=== PATIENT | female | born 1960 | race Caucasian/White ===

== ENCOUNTER → 2017-10-23 10:49 | Outpatient (CLI) | payer SELFPAY ==
--- NOTE | 2017-10-23 10:51 | RAD_ITS ---
STUDY: X-RAY - RIGHT SHOULDER REASON FOR EXAM: Female, 57 years old. Shoulder pain and stiffness. TECHNIQUE: 4 view(s) of the shoulder. COMPARISON: None. FINDINGS: Normal glenohumeral articulation. Normal acromioclavicular joint. Normal acromion. Normal humeral head and visualized proximal humerus. There is periarticular soft tissue calcification consistent with a calcific tendinitis. Normal visualized pulmonary apex. RAD/Shoulder min 2 Views IMPRESSION: Calcific tendinitis. Electronically Signed: Maulik Garcia MD at 15:54 EDT Tel [phone], Service support ,
== END ==
PROVIDERS: Family Provider Internal Medicine; PCP Internal Medicine; Visit Provider Internal Medicine
DX: M75.31 Calcific tendinitis of right shoulder (principal)
CPT/HCPCS: 73030

== ENCOUNTER → 2018-07-30 09:45 | Outpatient (CLI) | payer OTHER, SELFPAY ==
--- NOTE | 2018-07-30 09:52 | RAD_ITS ---
STUDY: X-RAY CHEST REASON FOR EXAM: Female, 58 years old. Cough. TECHNIQUE: PA and lateral chest. COMPARISON: July 09, 2014. FINDINGS: The lungs are clear and expanded. There is no demonstrated pleural abnormality. Lungs are hyperinflated. Normal size heart. Normal mediastinum and jose. Normal visualized pulmonary arteries. Normal visualized aortic arch and descending thoracic aorta. Normal visualized thoracic spine. Normal visualized ribs, clavicles, and shoulders. There is no demonstrated abnormality of the visualized soft tissue structures of the upper abdomen. RAD/Chest PA and Lateral IMPRESSION: Stable chest, no acute cardiopulmonary disease. Hyperinflation. Electronically Signed: Mau Watson MD at 4:40 EST , Service support ,
== END ==
PROVIDERS: Family Provider Internal Medicine; PCP Internal Medicine; Referring Provider Nurse Practitioner Gerontology; Visit Provider Nurse Practitioner Gerontology
DX: R05 Cough (principal)
CPT/HCPCS: 71046

== ENCOUNTER → 2019-12-12 12:48 | Outpatient (CLI) | payer OTHER, SELFPAY ==
--- NOTE | 2019-12-12 12:55 | ECHOD_ITS ---
Reason For Study: RBBB Procedure This was a 2D Doppler, Color Flow transthoracic echocardiogram. The exam was of adequate technical quality. Exam performed in department. Left Ventricle Normal LV size. Left ventricular systolic function is normal. The estimated ejection fraction is 55 %. No evidence for diastolic dysfunction. No regional wall motion abnormalities noted. Right Ventricle Normal RV size. Normal systolic function. Atria Normal left atrium. Normal right atrium. Aneurysmal atrial septum. No doppler evidence for ASD. Mitral Valve There is no mitral annular calcification. Mild focal mitral valve calcification of the anterior leaflet. Mild (1+) mitral valve insufficiency. Tricuspid Valve Normal tricuspid valve. Trivial tricuspid valve insufficiency. Right ventricular systolic pressure estimated to be 20 mmHg. Aortic Valve Trisinus/trileaflet aortic valve. Mild diffuse aortic valve thickening. Mild focal aortic valve calcification. Pulmonic Valve The pulmonic valve is not well visualized. Trivial pulmonic valve insufficiency. Great Vessels Normal sized aortic root. Pericardium/Pleural No pericardial effusion. MMode/2D Measurements & Calculations LVIDd: 4.5 cm IVSd: 0.80 cm Ao root diam: 2.6 cm LVIDs: 3.1 cm LVPWd: 0.70 cm RVDd: 4.1 cm FS: 30.9 % LAV(MOD-bp): 38.3 ml LVAd ap4: 25.7 cm2 SV(MOD-sp4): 42.4 ml LAV(MOD-bp) Indexed: 21.8 ml/m2 EDV(MOD-sp4): 76.2 ml LAV(MOD-sp2): 26.1 ml EDV(sp4-el): 77.3 ml LAV(MOD-sp4): 35.2 ml LVAs ap4: 15.3 cm2 ESV(MOD-sp4): 33.8 ml ESV(sp4-el): 33.2 ml EF(MOD-sp4): 55.6 % EF(sp4-el): 57.1 % SV(sp4-el): 44.2 ml LA A4 area: 15.9 cm2 LA dimension(2D): 3.1 cm RA A4 area: 14.0 cm2 Doppler Measurements & Calculations MV E max florin: 62.3 cm/sec Lat Peak E' Florin: 11.2 cm/sec Med Peak E' Florin: 8.8 cm/sec MV A max florin: 55.0 cm/sec E/E' lat: 5.6 E/E' med: 7.1 MV E/A: 1.1 Ao V2 max: 117.8 cm/sec LV V1 max: 87.9 cm/sec PA V2 max: 82.0 cm/sec Ao max P.5 mmHg LV V1 max P.1 mmHg Ao V2 mean: 87.9 cm/sec Ao mean P.3 mmHg Ao V2 VTI: 27.5 cm TR max florin: 191.2 cm/sec TR max P.6 mmHg Interpretation Summary Left ventricular systolic function is normal. The estimated ejection fraction is 55 %. Aneurysmal atrial septum. Mild focal mitral valve calcification of the anterior leaflet. Mild (1+) mitral valve insufficiency. Trivial tricuspid valve insufficiency. Mild diffuse aortic valve thickening. Mild focal aortic valve calcification. Trivial pulmonic valve insufficiency. Right ventricular systolic pressure estimated to be 20 mmHg. No evidence for diastolic dysfunction. Ordering Physician: Mariella Espinosa Referring Physician: Mariella Espinosa Performed By: Leanna Thomas, [place], RVT
== END ==
PROVIDERS: PCP Internal Medicine; Referring Provider Internal Medicine; Visit Provider Internal Medicine
DX: R00.2 Palpitations (principal); I45.10 Unspecified right bundle-branch block
CPT/HCPCS: 93225; 93226; 93306

== ENCOUNTER → 2020-03-17 10:20 | Outpatient (CLI) | payer SELFPAY ==
[2020-02-27 16:12] VITALS: BMI 20.2
--- NOTE | 2020-03-17 10:22 | STEWCON_ITS ---
Reason For Study: Dyspnea; Palpitations Stress Results Protocol: Natanael Protocol WITH DEFINITY Maximum Predicted HR: 162 bpm Target HR: 138 bpm % Maximum Predicted HR: 106 % DurationHeart Rate Stage (mm:ss) (bpm) BP Comment Baseline 70 126/78No Chest Pain; 2 ML Diluted Definity Natanael Protocol Stage I 3:00 106 142/66No Chest Pain Natanael Protocol Stage II 3:00 113 150/64No Chest Pain Natanael Protocol Stage III 3:00 148 162/66No Chest Pain; Mild Dyspnea Natanael Protocol Stage IV 3:00 171 180/58No Chest Pain; Mild to Mod Dyspnea Recovery 88 130/74No Chest Pain; Bubble X 1 Done Stress Duration: 12:00 mm:ss Maximum Stress HR: 171 bpm METS: 13 Baseline Echocardiogram Findings Stress Echo Wall motion Data Resting WM Intermediate WM Stress WM Resting Wall Motion Wall Motion Stress All segments Normal. All segments Hyperkinetic. Ejection Fraction 55 %. Ejection Fraction 65 %. Stress Results Heart rate response: Appropriate Blood pressure response: Normal resting blood pressure-appropriate response Arrhythmias: Occasional PVC and an isolated ventricular couplet during exercise and a rare PVC during recovery Functional capacity: Good Stopped secondary to: Dyspnea. EKG Data Baseline ECG: Sinus rhythm; RSR prime pattern in V1. Peak exercise ECG: No obvious ECG changes. Symptoms with Stress No complaint of chest discomfort during exercise or recovery. Interpretation Summary 1. Negative (adequate) stress echocardiogram 2. Agitated saline contrast study: Positive for a right to left interatrial shunt compatible with a PFO versus ASD Ordering Physician: Bernabe Galvez Referring Physician: Mariella Espinosa Performed By: Abdiaziz Jim RCS
== END ==
PROVIDERS: PCP Internal Medicine; Referring Provider Internal Medicine Cardiovascular Disease; Visit Provider Internal Medicine Cardiovascular Disease
DX: R00.2 Palpitations (principal); I47.1 Supraventricular tachycardia; I45.10 Unspecified right bundle-branch block; E78.00 Pure hypercholesterolemia, unspecified; R06.00 Dyspnea, unspecified
CPT/HCPCS: 93017; 93350; Q9957; A4216; C8928

== ENCOUNTER → 2020-03-30 09:00 | Outpatient (CLI) | payer OTHER, SELFPAY ==
[2020-02-27 16:12] VITALS: BMI 20.2
== END ==
PROVIDERS: PCP Internal Medicine; Referring Provider Internal Medicine Cardiovascular Disease; Visit Provider Internal Medicine Cardiovascular Disease
DX: I47.1 Supraventricular tachycardia (principal); I45.10 Unspecified right bundle-branch block; R93.1 Abnormal findings on diagnostic imaging of heart and coronary circulation; R06.02 Shortness of breath
CPT/HCPCS: 87635; C9803; U0003

== ENCOUNTER → 2020-04-03 11:50 | Outpatient (CLI) | payer SELFPAY, OTHER ==
[2020-02-27 16:12] VITALS: BMI 20.2
[2020-03-30 10:21] LABS: Anion Gap 8 (5-15); BUN 11 mg/dL (7-18); BUN/Creat Ratio 15.9 RATIO (10-20); Calcium,Total 9.2 mg/dL (8.5-10.1); Chloride 98 mmol/L (98-107); Creatinine, Serum 0.69 mg/dL (0.55-1.02); EST Glomerular Filtration Rate 93 mL/min (>60); Est Glom Filt Rate - Afr Amer 112 mL/min (>60); Glucose 99 mg/dL (74-106); Potassium 4.2 mmol/L (3.5-5.1); Sodium Level 135 mmol/L (136-145)
--- NOTE | 2020-04-03 11:51 | ECHOTEE_ITS ---
Reason For Study: PFO/ ASD Medication DARLENE probe 6VT-D (SN [id number]) passed without difficulty. No complications were noted. Cetacaine Topical [place] given X3 orally. Versed 2.0 mg given slow IVP. Fentanyl 100 mcg given slow IVP. Saline bubble x 2. Left Ventricle Normal LV size. Left ventricular systolic function is normal. The estimated ejection fraction is 65 %. No regional wall motion abnormalities noted. Right Ventricle Normal RV size. Normal systolic function. Atria Color-flow doppler appearing compatible with a small PFO. Agitated saline contrast study considered negative for interatrial shunt. Normal left atrium. There is no sponatenous contrast in the left atrium. No thrombus is detected in the left atrial appendage. Normal right atrium. There is no sponatenous contrast in the right atrium. No obvious RA/ appendage thrombus identified. Mitral Valve There is no mitral annular calcification. Mild focal mitral valve calcification of the anterior leaflet. Mild (1+) mitral valve insufficiency. Tricuspid Valve Normal tricuspid valve. Trivial tricuspid valve insufficiency. Aortic Valve Trisinus/trileaflet aortic valve. Mild diffuse aortic valve thickening. Mild focal aortic valve calcification. Pulmonic Valve The pulmonic valve is not well visualized. Trivial pulmonic valve insufficiency. Vessels Mild atherosclerosis of the descending aorta. Pericardium No pericardial effusion. Interpretation Summary Left ventricular systolic function is normal. The estimated ejection fraction is 65 %. There is no sponatenous contrast in the left atrium. No thrombus is detected in the left atrial appendage. Mild focal mitral valve calcification of the anterior leaflet. Mild (1+) mitral valve insufficiency. Trivial tricuspid valve insufficiency. Mild diffuse aortic valve thickening. Mild focal aortic valve calcification. Trivial pulmonic valve insufficiency. Color-flow doppler appearing compatible with a small PFO. Agitated saline contrast study considered negative for interatrial shunt. Mild atherosclerosis of the descending aorta. Ordering Physician: Bernabe Galvez Referring Physician: DOMINGA REESE Performed By: Isela Miramontes, [place], RVT
== END ==
PROVIDERS: PCP Internal Medicine; Referring Provider Internal Medicine Cardiovascular Disease; Visit Provider Internal Medicine Cardiovascular Disease
DX: R93.1 Abnormal findings on diagnostic imaging of heart and coronary circulation (principal); R06.02 Shortness of breath; I47.1 Supraventricular tachycardia; I45.10 Unspecified right bundle-branch block
CPT/HCPCS: 36415; 80048; 93312; 93320; 93325; J7040; A4216

== ENCOUNTER 2021-03-29 08:00 | Outpatient (RCR) | payer OTHER, SELFPAY ==
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
--- NOTE | 2021-03-29 09:01 | HP.PTDCSUM_ITS ---
It has been my pleasure to treat ROMAINE SLATER referred by Dr. Mariella Reese, DO, with the diagnosis of CERVICAL RADICULOPATHY for a total of 6 visit(s). Discharge Date: 03/29/21 Please see the following information for a summary of their discharge status. Subjective: PATIENT REPORTS SHE CAN'T REMEMBER THE LAST TIME SHE HAD A HEADACHE FOR ABOUT 2 WEEKS. PATIENT REPORTS WHEN SHE LAYS DOWN NOW SHE DOESN'T HAVE TO PUT HER ARM OVER HER HEAD TO GET COMFORTABLE LIKE SHE DID BEFORE HAVING THERAPY. SHE STATES THAT BEFORE STARTING THERAPY SHE COULDN'T SLEEP ON HER LEFT SIDE OR EVEN HER RIGHT SIDE SOMETIMES BECAUSE OF THE PAIN BUT NOW SHE CAN. SHE REPORTS THERAPY HAS BEEN HELPING HER PAIN GET A LOT BETTER. STATES SHE HAS A LOT MORE STRENGTH IN HER NECK NOW AND SHE CAN DO HER WORK NOW WITHOUT MUCH PAIN. SHE REPORTS THAT HER PAIN IS WORSE IN THE EVENING THAN IN THE MORNING BECAUSE HER NECK STARTS TO ACHE. PATIENT REPORTS RECIEVING A CORTISONE SHOT FROM DR. REESE LAST WEEK AND IT SEEMED TO HELP SOME. SHE POINTS TO THE LEFT NECK, UPPER TRAP AND PROXIMAL SHOULDER AREAS WHEN REFERRING TO HER SX'S. 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 PATIENT REPORTS SHE STILL HAS SOME LEFT UPPER ARM SORENESS TO THE ELBOW THAT IS VERY MINOR THAT SHE HASN'T MENTIONED. L SHLD Pain Intensity (Out of 10): 1 NECK Pain Intensity (Out of 10): 1 % Improvement: 90 Objective/Function: PATIENT WAS SEEN TODAY FOR RE-ASSESSMENT OF PROGRESS TOWARD THE SET PT GOALS AND THE NEED FOR FURTHER PHYSICAL THERAPY VS READINESS FOR DISCHARGE. THIS PATIENT HAS MADE GREAT PROGRESS WITH PT AND IS ON A HEP BUT STILL HAS SOME LEFT CHEST/UE SORENESS TO THE ELBOW ALONG WITH LEFT UT SORENESS/TIGHTNESS. ALSO REPORTING SHE STILL HAS SOME MINOR LEFT CHEST TIGHTNESS WITH CERTAIN NECK MVMTS. SHE WANTS TO TRY JUST CONTINUEING WITH HER HEP AT THIS TIME AND WILL FOLLOW UP WITH DR. REESE NEEDED IF IT DOESN'T COMPLETELY GO AWAY WITH MORE TIME. 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 IAN UE'S GROSSLY AT LEAST 4/5 WITH MMT'ING BUT PROCEEDED CAREFULLY DUE TO NEW ONSET LBP. Sensory deficit: IAN UE LIGHT TOUCH SENSATION APPEARS GROSSLY INTACT AND SYMMETRICAL. ROM deficit: IAN UE'S GROSSLY WFL. Dural Signs: NEGATIVE. Cervical Mvmt Loss: Flex: NIL. Pro: NIL. Ext: MIN. Ret: MOD TO YINKA. RSB: MIN. LSB: MIN. R Rot: NIL. L Rot: NIL. Postural strength: FAIR. Palpation: NO ACUTE CERVICAL OR SHLD TENDERNESS WITH PALPATION TODAY BUT STILL HAS IAN UT TIGHTNESS L > R Goal 1:: DECREASE C/O NECK AND LEFT UE SX'S. Goal Progress: Goal Met Goal 2:: IMPROVE PERSONAL CARE, LIFTING, READING, HOMEMAKING AND RECREATIONAL FUNCTION Goal Progress: Goal Met Goal 3:: INSTRUCT IN PROPHYLAXIS Goal Progress: Goal Met Plan: D/C If there are questions or concerns regarding this patient's physical therapy, please feel free to call me at [phone]. Thank you for the referral of this patient. Sincerely, Frieda Hewitt, PT, Cert MDT Balance/Gait/Functional tests - Balance/Special Test Scores Oswestry Neck Score: 8
== END 2021-03-29 19:00 | disposition home or self-care (01) ==
LOC: PT 08:00
PROVIDERS: PCP Internal Medicine; Visit Provider Internal Medicine
DX: M54.12 Radiculopathy, cervical region (principal)
CPT/HCPCS: 97014; 97035; 97112; 97162; 97164; 97530; G0283

== ENCOUNTER 2021-05-11 08:07 | Emergency (ER) | payer OTHER, SELFPAY ==
[2021-05-11 08:08] VITALS: BP 156/88; PULSE 106; RESP 16; TEMP 36.2; O2SAT 96; BMI 21.2
--- NOTE | 2021-05-11 08:27 | RAD_ITS ---
STUDY: X-RAY CHEST REASON FOR EXAM: Female, 61 years old. Cough TECHNIQUE: Frontal view of the chest COMPARISON: 07/30/18 FINDINGS: There are patchy airspace opacities in the mid to lower lung pierce, right greater than left. This is likely infectious in etiology. There are no pleural effusions. There is no pneumothorax. The heart is normal in size. The visualized osseous structures are within normal limits. RAD/Chest 1 View (Portable) IMPRESSION: Patchy airspace opacity in the mid to lower lung pierce, right greater than left. This is likely infectious in etiology. Electronically Signed: Guillermo Nelson MD at 9:43 EST Tel , Service support ,
--- NOTE | 2021-05-11 08:28 | EDS_ITS ---
HPI History of Present Illness Chief Complaint: Shortness of Breath Informant: patient Onset/Context/Timing Onset: Weeks (2) Context: gradual and onset Timing: Intermittent Quality: Positive for Wheezing Current Severity: Mild Maximum Severity: Mild Worsened by: Exertion and Coughing Relieved by: Rest Associated Symptoms cough, fever, subjective and chills; Negative for ear pain, sore throat, white sputum, yellow sputum or green sputum Chest Pain: Positive for None Narrative Narrative: 2 wks of URI sx, fevers, chills, myalgias, some diarrhea, and mild sob. Feels like mild asthma sx/wheezing, she does have hx of asthma. 2 wks of illness, this is the first time she has sought evaluation. non vaccinated against covid, no contact w/ ill covid contact that she knows of, has not yet been tested. Later, patient revises his history by saying she started having a cough even longer ago than 2 weeks, but her chest started bothering her around 2 weeks ago. [facility] Medical History Abnormal echocardiogram Palpitations Pure hypercholesterolemia RBBB (right bundle branch block) SOB (shortness of breath) SVT (supraventricular tachycardia) Home Medications NK 02/27/20 [History Last Taken Unknown] Allergy/AdvReac Type Severity Reaction Status Date / Time Penicillins Allergy Unknown Unknown Verified 02/27/20 16:12 Family History (Updated 02/27/20 @ 16:16 by Joann Pineda) Father CAD (coronary artery disease) History of coronary artery bypass surgery Grandfather Heart disease Uncle CAD (coronary artery disease) History of coronary artery bypass surgery Uncle CAD (coronary artery disease) History of coronary artery bypass surgery Surgical History (Updated 02/27/20 @ 12:26 by Joann Pineda) History of back surgery Social History Smoking Status: Never smoker alcohol intake: never substance use type: does not use caffeine: Yes Type: coffee Number of servings: 3 ROS ROS ED Constitutional Constitutional ED: Reports body ache(s), chills, fatigue, fever(s), headache(s) and malaise Eyes Eyes: Denies change in vision or diplopia ENT ENT ED: Denies rhinorrhea or sore throat Cardiovascular Cardiovascular: Denies chest pain or palpitations Respiratory/Chest Respiratory/Chest: Reports cough, dyspnea, dyspnea on exertion and wheezing Gastrointestinal Gastrointestinal: Reports diarrhea; Denies abdominal pain, nausea or vomiting Genitourinary Genitourinary ED: Denies dysuria or hematuria Musculoskeletal Musculoskeletal: Denies back pain or neck pain Integumentary Denies abscess or rash Neurologic Neurologic: Reports headache(s); Denies paresthesias or weakness Psychiatric Psychiatric: Denies anxiety or suicidal thoughts EXAM Physical Exam Const Vital Signs: 05/11/21 08:08 Temperature 97.1 F L Temperature Source Temporal Pulse Rate 106 H Respiratory Rate 16 Blood Pressure 156/88 H Blood Pressure Mean 110 Pulse Ox 96 Oxygen Delivery Method Room Air Positive well nourished and well developed Constitutional Narrative: Well-appearing, no distress, conversive in full sentences. General Appearance ED: well developed and NAD HEENT Reports moist mucous membranes normocephalic and atraumatic Eyes PERRL and EOMs intact bilaterally Neck full ROM and supple Resp normal respiratory effort and clear to auscultation bilaterally Cardio regular rate, regular rhythm and no murmurs Rate: Negative for tachycardic GI non-tender and non-distended Auscultation: normoactive bowel sounds Palpation: soft Back/Spine no CVA tenderness General Back: other FROM Extremity normal to inspection and no calf tenderness General Extremety ED: Negative for edema, pulses abnormal or tenderness General Extremity: Negative for edema or pulses abnormal Neuro oriented x3, CN's II-XII intact bilaterally and no sensory deficits noted Sensorium / Orientation: awake and alert Motor Exam: strength 5/5 throughout Skin no rashes or lesions noted and no wounds MDM MDM MDM Narrative Medical decision making narrative: Patient's rapid Covid returned negative. This certainly could be false negative since she has had symptoms for more than 2 weeks. Her chest x-ray shows some pneumonia that is consistent with Covid, however if she does not have Covid, she needs antibiotics. Therefore we sent a PCR test stat, and waited several hours for the results to come back. It returned positive. Given this, I can reassure the patient and safely send her home since she is not hypoxic and is oxygenating well. I do not think she needs worked up for pulmonary embolus at this time. She agrees she is not getting worse, but she was not getting better which is why she sought evaluation. We discussed reasons to return and follow-up, and we discussed checking her pulse ox at home. Lab Data Attestation: I reviewed the patient's lab results. Labs: Laboratory Results - last 24 hr 05/11/21 05/11/21 05/11/21 08:45 08:45 09:54 WBC 7.4 RBC 4.18 L Hgb 12.9 Hct 38.0 MCV 90.9 MCH 30.9 MCHC 33.9 RDW Std Deviation 40.2 RDW Coeff of [place] 12.1 Plt Count 349 MPV 10.1 Immature Gran % (Auto) 0.300 Neut % (Auto) 79.8 H Lymph % (Auto) 11.7 L [place] % (Auto) 6.6 Eos % (Auto) 1.5 Baso % (Auto) 0.1 Absolute Neuts (auto) 5.9 Absolute Lymphs (auto) 0.87 Nucleated RBC % 0 Sodium 132 L Potassium 3.8 Chloride 100 Carbon Dioxide 29.0 Anion Gap 3 L BUN 5 L Creatinine 0.58 Estim Creat Clear Calc 104.70 Est GFR (MDRD) Af Amer 136 Est GFR (MDRD) Non-Af 112 BUN/Creatinine Ratio 8.6 L Glucose 132 H Calcium 9.2 COVID-19 ([place]) Detected Radiography Diagnostic Testing: Clinical Impression(s) from Imaging Studies Chest X-Ray 05/11/21 08:27 IMPRESSION: Patchy airspace opacity in the mid to lower lung pierce, right greater than left. This is likely infectious in etiology. Electronically Signed: Guillermo Nelson MD at 9:43 EST Tel , Service support , Discharge Plan Triage Chief Complaint: Shortness of Breath ED Provider: Celso Davis Dx/Rx/DC Orders Clinical Impression: Pneumonia due to COVID-19 virus Instructions: Coronavirus Disease 2019 (COVID-19): Caring for Yourself or Others Prescriptions: No Action NK RF: 0 Primary Care Provider: Mariella Espinosa Referrals: Mariella Espinosa, [Primary Care Provider] - 1 Week if not improving Activity Restrictions/Additional Instructions: Try to get a home portable pulse oximeter and closely watch your oxygen levels periodically. If you stay below 90% for more than a minute or so, and/or you are feeling like your breathing is getting worse, return to the emergency department for further evaluation. Disposition Disposition: Home, Self Care
[2021-05-11 09:01] LABS: Absolute Lymphocyte Count 0.87 X10^3/uL (0.83-4.51); Absolute Neutrophil Count 5.9 X10^3/uL (2.0-7.7); Basophil# 0.01 X10^3/uL; Basophil% 0.1 % (0-1); Eosinophil# 0.11 X10^3/uL; Eosinophils% 1.5 % (0-5); Hemoglobin 12.9 g/dL (12.0-15.0); Lymphocyte # 0.87 X10^3/ul (0.83-4.51); Lymphocyte % 11.7 % (19-41); Mean Corp Hgb Conc 33.9 g/dL (32-36); Mean Corpuscular Hgb 30.9 pg (27.0-32.0); Mean Corpuscular Volume 90.9 fL (81-99); Mean Platelet Vol. 10.1 fl (6.2-12.0); Monocyte# 0.49 X10^3/uL; Monocyte% 6.6 % (0-10); NRBC Flagged by Analyzer 0 % (0-5); Neutrophil # 5.94 X10^3/uL (2.7-7.7); Neutrophil % 79.8 % (47-70); Platelet Count 349 K/mm3 (150-450); RBC Distribution Width CV 12.1 % (11.6-14.6); RBC Distribution Width SD 40.2 fl (35.1-43.9); Red Blood Count 4.18 M/mm3 (4.2-5.4); White Blood Count 7.4 K/mm3 (4.4-11.0)
[2021-05-11 09:14] LABS: Anion Gap 3 (5-15); BUN 5 mg/dL (7-18); BUN/Creat Ratio 8.6 RATIO (10-20); Calcium,Total 9.2 mg/dL (8.5-10.1); Chloride 100 mmol/L (98-107); Creatinine, Serum 0.58 mg/dL (0.55-1.02); EST Glomerular Filtration Rate 112 mL/min (>60); Est Glom Filt Rate - Afr Amer 136 mL/min (>60); Glucose 132 mg/dL (74-106); Potassium 3.8 mmol/L (3.5-5.1); Sodium Level 132 mmol/L (136-145)
== END 2021-05-11 15:27 | disposition home or self-care (01) ==
PROVIDERS: Emergency Provider Emergency Medicine; PCP Internal Medicine
DX: U07.1 COVID-19 (principal); J12.82 Pneumonia due to coronavirus disease 2019
CPT/HCPCS: 71045; 80048; 85025; 87426; 87635; 99283; U0005; A4216; U0003

== ENCOUNTER → 2022-06-07 | Outpatient (CLI) | payer OTHER, SELFPAY ==
--- NOTE | 2022-06-07 15:32 | RAD_ITS ---
INDICATION: COUGH EXAMINATION/TECHNIQUE: X-RAY - XR Chest 2 Views COMPARISON: May 11, 2021 FINDINGS: LINES/DEVICES: None. LUNGS: Lungs are mildly hyperinflated and there is mild interstitial thickening in both lower lobes. No pneumothorax. MEDIASTINUM AND CARDIOVASCULAR STRUCTURES: Cardiac silhouette not enlarged. Central airways and mediastinal contour are unremarkable. BONES AND SOFT TISSUES: Unremarkable. RAD/Chest PA and Lateral IMPRESSION: Mild hyperinflation and mild bibasilar interstitial thickening. No gross infiltration Electronically Signed: Eloy Julian MD at 16:47 EST ,
== END | disposition home or self-care (01) ==
LOC: MTRAD 15:29
PROVIDERS: PCP Internal Medicine; Referring Provider Internal Medicine; Visit Provider Internal Medicine
DX: R05.9 Cough, unspecified (principal)
CPT/HCPCS: 71046

== ENCOUNTER → 2023-04-28 | Outpatient (CLI) | payer SELFPAY ==
--- NOTE | 2023-04-28 15:17 | RAD_ITS ---
STUDY: X-RAY CHEST REASON FOR EXAM: Female, 63 years old. Cough persistent for 3 weeks TECHNIQUE: Frontal and lateral views of the chest. COMPARISON: 06/07/2022. FINDINGS: There is hyperinflation of the lungs consistent with chronic obstructive lung disease (COPD). No infiltrates or effusions. There is no demonstrated pleural abnormality. Normal size heart. Normal mediastinum and jose. Normal visualized pulmonary arteries. Normal visualized aortic arch and descending thoracic aorta. Normal visualized thoracic spine. Normal visualized ribs, clavicles, and shoulders. There is no demonstrated abnormality of the visualized soft tissue structures of the upper abdomen. RAD/Chest PA and Lateral IMPRESSION: There are findings consistent with COPD. There is no evidence of acute chest disease. Electronically Signed: Chilo Mendez MD at 16:14 EST ,
== END | disposition home or self-care (01) ==
PROVIDERS: PCP Internal Medicine; Referring Provider Physician Assistant Surgical; Visit Provider Physician Assistant Surgical
DX: R05.3 Chronic cough (principal)
CPT/HCPCS: 71046

== ENCOUNTER 2023-10-16 07:26 | Day surgery (SDC) | payer SELFPAY, OTHER ==
--- NOTE | 2023-10-16 07:45 | HP.PCM_ITS ---
[facility] - General General Date of Service: 10/16/23 [facility] Narrative ROMAINE SLATER, is a 63 F who presents due to screening colonoscopy. Patient never had previous colonoscopy. Patient denies any chronic abdominal pain/nausea/vomiting/reflux. Patient has bowel movements daily denies any blood. Patient denies any family history of colon cancer. [facility] Medical History (Updated 10/11/23 @ 12:46 by Jany George) Abnormal echocardiogram Acute bronchitis Cardiology follow-up encounter History of echocardiogram History of irregular heartbeat History of stress test Non-smoker Palpitations Persistent cough for 3 weeks or longer PONV (postoperative nausea and vomiting) Pure hypercholesterolemia RBBB (right bundle branch block) SOB (shortness of breath) SVT (supraventricular tachycardia) Wears glasses Home Medications albuterol sulfate 2.5 mg/3 mL (0.083 %) solution for nebulization 2.5 mg inhalation Q4-6H PRN shortness of breath or wheezing 08/31/23 [History Last Taken Unknown] calcium carb-vit D2-magnesium capsule 1 cap PO DAILY 08/31/23 [History Last Taken Unknown] omega-3 fatty acids 1,000 mg capsule 1,000 mg PO DAILY 08/31/23 [History Last Taken Unknown] Allergy/AdvReac Type Severity Reaction Status Date / Time Penicillins Allergy Unknown Unknown Verified 10/11/23 12:38 Family History Father CAD (coronary artery disease) History of coronary artery bypass surgery Grandfather Heart disease Uncle CAD (coronary artery disease) History of coronary artery bypass surgery Uncle CAD (coronary artery disease) History of coronary artery bypass surgery Surgical History History of back surgery Social History (Updated 08/31/23 @ 13:47 by Octavia Guadalupe) household members: spouse Smoking Status: Never smoker alcohol intake: never substance use type: does not use caffeine: Yes Type: coffee Number of servings: 3 enrique/shinto: Lamberto Past Medical/Surgical History Planned Operation Planned Operative Procedure/s: CSCOPE Previous Hospitalizations/Surgeries HX Hospitalizations: No Any Problems With Anesthesia: Yes (PONV) You/Your Family Experience Fever (Hyperthermia) With Anes: No Cholinesterase deficiency: No Cardiovascular Hx of Irregular Heartbeat and/or Afib: No Hx Heart Attack: No Hx Congestive Heart Failure: No Hx Hypertension: No Hx Internal Defibrillator: No Hx Pacemaker: No Respiratory Hx Chronic Obstructive Pulmonary Disease (COPD): No Hx Asthma: Yes Hx Emphysema: No Hx Sleep Apnea: No Hx Respiratory Tract Infection/Cold (presently): No Do You Snore Loudly (louder than talking or can be heard): No Do You Often Feel Tired/ Fatigued/ Sleepy [place]ring Daytime?: No Has Anyone Observed You Stop Breathing During Sleep?: No Result (for STOP score): Negative Smoking Status: Never smoker Gastrointestinal Hx Ulcer: No Special diet followed at home: No Neurological Hx Seizures: No Hx Multiple Sclerosis: No Hx Parkinson's Disease: No Hx Head/Neck Injury: No Hx Headaches: No Hx Back Injury/Pain: Yes Does patient have nerve stimulator: No Reproduction : No Psycho/Social Hx Anxiety: No Hx Depression: No Allergies Penicillins Allergy (Unknown, Verified 10/11/23 12:38) Unknown Childhood, unsure of reaction Discharge Is Pt Admitted From a Longterm, or a Fpc: No After D/C, Where Do you Plan to Go: Return Home Physical Exam Const alert, oriented x3 and no apparent distress HEENT normocephalic and head/scalp atraumatic Resp normal respiratory effort Cardio regular rate GI soft to palpation and non-tender; Negative for non-distended Palpation: Negative for guarding Extremity no clubbing, cyanosis or edema Skin no rashes or lesions noted Neuro CN's II-XII intact bilaterally Psych mental status grossly normal Assessment & Plan Assessment/Plan (1) Encounter for screening for malignant neoplasm of colon: Surgery Risks - Colonoscopy I discussed with the patient the risks of the procedure: Yes Risks Include but are not Limited To: Risks include but are not limited to: Bleeding, perforation requiring further surgery, inability to complete colonoscopy requiring barium enema.
[2023-10-16] MEDS: Lactated Ringers 1,000 ML 15 ML IV (07:53)
[2023-10-16 07:54] VITALS: BP 122/57; PULSE 88; RESP 16; TEMP 36.6; O2SAT 99; BMI 21.7
--- NOTE | 2023-10-16 09:00 | COLBX_PTH ---
PATIENT: ROMAINE SLATER LOC: EN U#:[id number] AGE/SX: 63/F ROOM: RE10/16/[address]: Dr. Darleen Lambert MD : 1960 BED: DIS: 10/16/2023 SPEC #: [id number] RECD: 10/16/23 09:53 STATUS: SHAILA ISI #: [id number] RAYSHAWN: 10/16/23 09:[address]: Darleen Lambert DEPT: SURGICAL PATHOLOGY RECD BY: [place] ENTERED: 10/16/23 12:23 SP TYPE: COLON BX OTHR DR: Dr. Mariella Espinosa, DO Tissues: Rectum, NOS Procedures: Surgery Specimen Level IV HEADER OPERATION: Colonoscopy biopsy of polyp PRE-OP DIAGNOSIS: Encounter for screening for malignant neoplasm of colon TISSUE SUBMITTED: Rectum polyp biopsies x2 MICROSCOPIC DIAGNOSIS Rectum polyp x2, biopsy: Fragments of hyperplastic polyp. SJ/mr 10/17/23 MICROSCOPIC DESCRIPTION Slides are reviewed. GROSS DESCRIPTION Received in fixative is one container labeled with the patient's name and designated Rectal polyp biopsy. The specimen consists of multiple irregular fragments of light lobo soft tissue that in aggregate measure 1.5 x 0.2 x 0.2 cm. The specimen is totally submitted in one cassette. GABE/ 10/16/23 TC:1 CPT:84346
[2023-10-16 09:30] VITALS: BP 122/57; BP 126/74; PULSE 71; RESP 16; TEMP 36.1; O2SAT 100
--- NOTE | 2023-10-16 09:32 | OP.COLON_ITS ---
Patient Name: Harini Lei Procedure Date: 10/16/2023 8:56 AM Date of : 1960 Age: 63 Procedure: Colonoscopy Indications: Screening for colorectal malignant neoplasm Providers: Darleen Lambert MD Referring MD: Mariella Espinosa Medicines: Monitored Anesthesia Care Patient Profile: This is a 63 year old female. Last Colonoscopy: none. The patient's first colonoscopy is today. Complications: No immediate complications. Procedure: Pre-Anesthesia Assessment: - Prior to the procedure, a History and Physical was performed, and patient medications and allergies were reviewed. The patient's tolerance of previous anesthesia was also reviewed. The risks and benefits of the procedure and the sedation options and risks were discussed with the patient. All questions were answered, and informed consent was obtained. Prior Anticoagulants: The patient has taken no anticoagulant or antiplatelet agents. ASA Grade Assessment: Per anesthesia. After reviewing the risks and benefits, the patient was deemed in satisfactory condition to undergo the procedure. After I obtained informed consent, the scope was passed under direct vision. Throughout the procedure, the patient's blood pressure, pulse, and oxygen saturations were monitored continuously. The Colonoscope was introduced through the anus and advanced to the cecum, identified by the appendiceal orifice, ileocecal valve and palpation. The colonoscopy was performed without difficulty. The patient tolerated the procedure well. The quality of the bowel preparation was good. Scope In: 9:06:09 AM Scope Withdrawal Time 0 hours 8 minutes 48 seconds Scope Out: 9:26:03 AM Total Procedure Duration Time 0 hours 19 minutes 54 seconds Findings: The perianal and digital rectal examinations were normal. Three sessile polyps were found in the rectum. The polyps were less than 5 mm in size. These polyps were removed with a cold biopsy forceps. Resection and retrieval were complete. The exam was otherwise without abnormality. Impression: - Three less than 5 mm polyps in the rectum, removed with a cold biopsy forceps. Resected and retrieved. - The examination was otherwise normal. Recommendation: - Discharge patient to home. - Resume previous diet. - Continue present medications. - Await pathology results. - Repeat colonoscopy in 5-10 years for surveillance based on pathology results. Procedure Code(s): --- Professional --- 01946, PT, Colonoscopy, flexible; with biopsy, single or multiple Diagnosis Code(s): --- Professional --- Z12.11, Encounter for screening for malignant neoplasm of colon D12.8, Benign neoplasm of rectum CPT copyright 2021 [employer]. All rights reserved. The codes documented in this report are preliminary and upon solar sales consultant review may be revised to meet current compliance requirements. MD Darleen Whatley MD 10/16/2023 9:31:09 AM This report has been signed electronically. Number of Addenda: 0 Note Initiated On: 10/16/2023 8:56 AM
--- NOTE | 2023-10-16 09:32 | OP.CCLET_ITS ---
10/16/2023 Mariella Espinosa [address] [place] [address] Re : Colonoscopy procedure for Harini Lei Dear Dr. Espinosa This procedure was performed on Monday, October 16, 2023. My impressions and recommendations are as follows: Impressions : - Three less than 5 mm polyps in the rectum, removed with a cold biopsy forceps. Resected and retrieved. - The examination was otherwise normal. Recommendations : - Discharge patient to home. - Resume previous diet. - Continue present medications. - Await pathology results. - Repeat colonoscopy in 5-10 years for surveillance based on pathology results. My findings are described in the full procedure note, which is enclosed. If I can be of further assistance, please feel free to contact me at Doctor phone number(s): , Work: . Sincerely, MD Darleen Whatley MD 10/16/2023 9:31:09 AM This report has been signed electronically.
[2023-10-16 09:35] VITALS: BP 122/57; BP 129/73; PULSE 64; PULSE 68; RESP 16; O2SAT 100
[2023-10-16 09:40] VITALS: BP 122/57; BP 133/73; PULSE 67; RESP 16; TEMP 36.1; O2SAT 100
[2023-10-16 09:49] VITALS: BP 122/57
== END 2023-10-16 10:20 | disposition home or self-care (01) ==
LOC: EN 07:27 → AC 07:27
PROVIDERS: PCP Internal Medicine; Referring Provider Internal Medicine; Visit Provider Surgery
PROC: 0DJD8ZZ Inspection of Lower Intestinal Tract, Via Natural or Artificial Opening Endoscopic (ICD-10-PCS; CPT 45378; principal; 2023-10-16 08:55)
DX: Z12.11 Encounter for screening for malignant neoplasm of colon (principal); K62.1 Rectal polyp; J45.909 Unspecified asthma, uncomplicated; Z79.51 Long term (current) use of inhaled steroids
CPT/HCPCS: 45380; 88305; J7120; J2405